=== PATIENT | male | born 1960 | race Caucasian/White ===

== ENCOUNTER 2024-02-08 01:12 | Emergency (ER) | payer BC ==
[~2024-02-08] VITALS: Ht 185.4 cm; Wt 82.0 kg
[2024-02-08] MEDS ORDERED: ondansetron HCL 4 MG/2 ML VIAL IV PRN (01:30)
[2024-02-08] MEDS ORDERED: KETOROLAC TROMETHAMINE 15 MG/ML VIAL IV ONE (01:30)
[2024-02-08 01:44] LABS: BASOPHILS 0.5 % (0-2); EOSINOPHILS 0.8 % (0-6); HEMATOCRIT 48.2 % (35.0-50.0); HEMOGLOBIN 16.7 g/dL (12.0-18.0); LYMPHOCYTES 4.9 % (24-44); MCH 31.1 (27-36); MCHC 34.7 g/dl (30-36); MCV 89.6 fl (81-99); MONOCYTES 5.3 % (0-12); NEUTROPHILS 88.5 % (39-80); PLATELET COUNT 284 K/uL (140-440); RBC 5.39 M/ul (4.3-5.7); RDW 13.3 (10.5-15.0)
[2024-02-08 02:01] LABS: ALBUMIN 4.4 g/dL (3.4-5.0); ALBUMIN/GLOBULIN RATIO 1.16 (1.1-2.4); ANION GAP 14.1 (7-21); BILIRUBIN, TOTAL 0.8 ng/dL (0.2-1.0); BUN/CREATININE RATIO 18.54 (6.0-28.6); CALCIUM 9.6 mg/dL (8.5-10.1); CREATININE, SERUM 1.24 mg/dL (0.70-1.30); POTASSIUM 4.1 mmol/L (3.5-5.1); PROTEIN, TOTAL 8.2 g/dL (6.4-8.2)
[2024-02-08 02:01] LABS: BILIRUBIN, URINE NEGATIVE (negative); BLOOD/HGB, URINE SMALL (Negative); KETONE, URINE NEGATIVE (Negative); LEUK ESTERASE, URINE NEGATIVE (negative); NITRITE, URINE NEGATIVE (negative); PH, URINE 5.5 (5-7)
[2024-02-08 02:26] LABS: BACTERIA, URINE RARE /hpf (negative); CASTS, URINE NONE SEEN \\lpf; CRYSTALS, URINE NONE SEEN (0-1+); EPITHELIAL CELLS, URINE SQUAMOUS 1+ /lpf (0-1+); REFLEX CULTURE, URINE No (No)
[2024-02-08 02:27] LABS: COLLECTION TYPE, URINE CLEAN CATCH
[2024-02-08] MEDS ORDERED: HYDROmorphone HCL 1 MG/ML SYR IV PRN (02:30)
[2024-02-08] MEDS ORDERED: HYDROCODONE BIT/ACETAMINOPHEN 5/325 MG 1 TAB HOME.PACK PO PRN (03:15)
[2024-02-08] MEDS ORDERED: ONDANSETRON 4 MG HOME.PACK SL ONE (03:15)
[2024-02-08] MEDS ORDERED: TAMSULOSIN HCL 0.4 MG CAP PO ONE (03:15)
[2024-02-08] MEDS ORDERED: FLOMAX0.4 MG PO (03:16)
[2024-02-08] MEDS ORDERED: HYDROCODON-ACE1 EA10 PO (03:16)
[2024-02-08 03:31] VITALS: BP 127/70
== END 2024-02-08 03:32 | disposition home or self-care (01) ==
LOC: ED 01:12
PROVIDERS: Emergency Medicine
DX: N20.2 Calculus of kidney with calculus of ureter (principal); N04.9 Nephrotic syndrome with unspecified morphologic changes; Z88.5 Allergy status to narcotic agent
CPT/HCPCS: 36415; 74176; 80053; 81001; 83690; 85025; 96374; 96375; 99284-25; A9270; J1170; J1885; J2405